=== PATIENT | male | born 1955 | race Two or more races ===

== ENCOUNTER 2017-06-18 21:04 | Emergency (ER) | payer MEDICAID ==
[~2017-06-18] VITALS: Ht 180.3 cm; Wt 83.9 kg
--- NOTE | 2017-06-18 21:28 | NUR ---
To bed 2 ambulatory c/o Intermittent headache x 1 1/2 weeks. Pt reports that when the pain comes it is severe and lasts less than 5 minutes and then completely resolves. 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 Pupils PERRL, pt able to move all extremities well with bilateral equal newspaper reporter. Pending er md cisneros.
[2017-06-18] MEDS ORDERED: METOCLOPRAMIDE HCL 10 MG TABLET ONE (21:29)
[2017-06-18] MEDS ORDERED: GABAPENTIN 100 MG CAPSULE ONE (21:29)
[2017-06-18] MEDS ORDERED: METOCLOPRAMIDE HCL 10 MG TABLET PO ONE (21:30)
[2017-06-18] MEDS ORDERED: GABAPENTIN 100 MG CAPSULE PO ONE (21:30)
--- NOTE | 2017-06-18 21:34 | NUR ---
DR. FERNANDEZ AT BEDSIDE. PT MEDICATED ORDERED.
--- NOTE | 2017-06-18 22:37 | NUR ---
Pt transported to Radiology for CT Head
--- NOTE | 2017-06-18 22:49 | NUR ---
pt back from radiology. pending ct head result.
--- NOTE | 2017-06-18 23:48 | NUR ---
Patient discharged to home in stable condition. Written and verbal after care instructions given. Patient verbalizes understanding of instruction. ambulatory with a steady gait noted. pt aaox4 no acute distress noted, resp even and unlabored. pt at bedside to take pt home.
[2017-06-18 23:49] VITALS: BP 142/64
== END 2017-06-18 23:50 | disposition home or self-care (01) ==
LOC: ER 21:05
DX: G50.0 Trigeminal neuralgia (principal); E11.9 Type 2 diabetes mellitus without complications
CPT/HCPCS: 70450; 99284; A4606; J8597; Z7610

== ENCOUNTER 2019-05-03 21:51 | Emergency (ER) | payer MEDICAID ==
[~2019-05-03] VITALS: Ht 180.3 cm; Wt 83.5 kg
--- NOTE | 2019-05-03 22:13 | NUR ---
BIBS FOR C/O COUGH AND CONGESTION FOR THE PAST FEW DAYS. REPORTED POSSIBLE FEVER AT HOME AND TOOK TYLENOL FRO IT. BUT HE DID NOT CHECK THE TEMP. AFEBRILE AT THIS TIME. VSS/ WILL CONT TO MONITOR ,
--- NOTE | 2019-05-03 22:50 | NUR ---
CALLED RT FOR BREATHING TX
[2019-05-03] MEDS ORDERED: ALBUTEROL FS 2.5 MG/3 ML VIAL.NEB ONE (22:53)
[2019-05-03] MEDS ORDERED: IPRATROPIUM NEB FS 0.5 MG/2.5 ML AMPUL.NEB ONE (22:53)
[2019-05-03] MEDS ORDERED: IPRATROPIUM NEB FS 0.5 MG/2.5 ML AMPUL.NEB NEB ONE (23:00)
[2019-05-03] MEDS ORDERED: ALBUTEROL FS 2.5 MG/3 ML VIAL.NEB NEB ONE (23:00)
[2019-05-03 23:08] VITALS: BP 131/76
--- NOTE | 2019-05-03 23:36 | NUR ---
Neo ma in ED - 05/03/19 at [id number] by RAYMUNDO Patient discharged to home in stable condition. Rx & Written and verbal after care instructions given. Patient verbalizes understanding of instruction.
--- NOTE | 2019-05-03 23:49 | NUR ---
Patient discharged to home in stable condition. RX & Written and verbal after care instructions given. Patient verbalizes understanding of instruction.
== END 2019-05-04 00:22 | disposition home or self-care (01) ==
LOC: ER 21:56
DX: J20.9 Acute bronchitis, unspecified (principal); F17.210 Nicotine dependence, cigarettes, uncomplicated; E78.5 Hyperlipidemia, unspecified; G89.29 Other chronic pain; E11.9 Type 2 diabetes mellitus without complications; I10 Essential (primary) hypertension
CPT/HCPCS: 71045-TC

== ENCOUNTER 2024-05-13 08:23 | Emergency (ER) | payer MEDICARE, OTHER ==
[~2024-05-13] VITALS: Ht 167.6 cm; Wt 79.8 kg
[2024-05-13] MEDS ORDERED: ACET-3117 PO (10:35)
[2024-05-13 11:11] VITALS: BP 141/98; TEMP 98.2; O2SAT 98
== END 2024-05-13 11:11 | disposition home or self-care (01) ==
LOC: ER 08:23
DX: M54.2 Cervicalgia (principal); I10 Essential (primary) hypertension; E11.9 Type 2 diabetes mellitus without complications; E78.5 Hyperlipidemia, unspecified; F17.200 Nicotine dependence, unspecified, uncomplicated
CPT/HCPCS: 72050-TC